=== PATIENT | female | born 1985 | race Asian ===

== ENCOUNTER 2018-07-14 23:40 | Outpatient (CLI) | payer MEDICAID ==
[~2018-07-14] VITALS: Ht 157.5 cm; Wt 81.3 kg
[2018-07-14 23:53] VITALS: BP 111/67; PULSE 83; RESP 19; Ht 157.5 cm; Wt 81.3 kg
[2018-07-14] MEDS ORDERED: PREN1TAB13 PO (23:56)
--- NOTE | 2018-07-15 03:50 | TRIAGE ---
OB Triage Datetime Report Generated by CPN: 07/15/2018 03:50 Datetime: 07/15/2018 03:25 Labor Evaluation Frequency: X3 Monitor Mode: External Duration (sec)2399: 60-70 Quality: Mild Pattern: Normal: <= 5 Contractions in 10 Minutes Resting Tone [place]: Relaxed Heart Rate FHR Baseline Rate: 135 Monitor Mode: External US Variability: Moderate 6-25 bpm Accelerations: 15X15 Decelerations: None Category: Category I Datetime: 07/15/2018 02:45 Stage of : OB Triage Labor Evaluation Frequency: 2-19 Monitor Mode: External Duration (sec)2399: 70-90 Quality: Mild Pattern: Normal: <= 5 Contractions in 10 Minutes Resting Tone [place]: Relaxed Heart Rate FHR Baseline Rate: 135 Monitor Mode: External US Variability: Moderate 6-25 bpm Accelerations: 15X15 Decelerations: None Category: Category I Datetime: 07/15/2018 02:10 Vaginal Exam Dilatation (cms): 1.0 Effacement (%): 30 Station: -3 Exam By: Suzy OSCAR Vaginal Bleeding: None Cervix, Consistency: Firm Cervix, Position: Posterior Datetime: 07/15/2018 01:32 Comments: MONITOR OFF, PT AMBULATING AROUND HALLWAY Datetime: 07/15/2018 00:55 Labor Evaluation Frequency: 3-6 Monitor Mode: External Duration (sec)2399: 50-110 Quality: Mild Pattern: Normal: <= 5 Contractions in 10 Minutes Resting Tone [place]: Relaxed Heart Rate FHR Baseline Rate: 145 Monitor Mode: External US Variability: Moderate 6-25 bpm Accelerations: 15X15 Decelerations: None Category: Category I Pain Assessment Pain Scale: 6 Pain Presence: Intermittent Pain Type: Contraction Pain Location: Abdomen Pain Relief Measures: Comfort Measures Datetime: 07/15/2018 00:09 Vaginal Exam Dilatation (cms): 1.0 Effacement (%): 30 Station: -3 Exam By: JANIE LAST Membrane Status: Intact Vaginal Bleeding: Normal Show Cervix, Consistency: Moderate Cervix, Position: Midposition Presentation 'A': Cephalic Datetime: 07/14/2018 23:59 Time of Arrival: 07/14/2018 23:41 EGA: 37.2 Arrived By: Wheelchair Arrived From: Home Chief Complaint: UC'S ([id number]) since around 2154 with some blood tinged mucus vaginal discharge Movement: Present Contractions: Regular Time Contractions Began: 07/15/2018 21:55 Contractions: q10-15 Rupture of Membranes: Denies Vaginal Bleeding: Normal Show Vaginal Discharge: Present Recent Sexual Intercouse: Denies Abdominal Trauma: Not Applicable Patient Complaints: Contractions Time Provider Notified: 07/15/2018 00:42 Initial Plan: VS, EFM, SVE, call OB Datetime: 07/14/2018 23:53 Assessment Type: Triage Maternal Assessment Level of Consciousness: Fully Conscious DTR's/Clonus: DTRs 2+; No Clonus Headache: Denies Blurred Vision: No Respiratory Effort: Unlabored; Regular Rhythm; Equal Expansion Breath Sounds, Left: Clear and Equal Breath Sounds, Right: Clear and Equal Nausea/Vomiting: Denies RUQ Epigastric Pain: Denies Lower Extremities Edema: None Degree: None Upper Extremities Edema: None Degree: None Facial Edema: None Temperature Route: Oral Fall Risk Assessment History of Falling: (0) No Secondary Diagnosis: (0) No Ambulatory Aid: (0) Bedrest/Nurse Assist IV Therapy: (0) No Gait: (0) Normal/Bedrest/Immobile Mental Status: (0) Oriented to Own Ability Fall Score: 0 Fall Risk Score Definition: No Risk: No action required Pain Assessment Pain Scale: 5 Pain Presence: Intermittent Pain Type: Contraction Pain Location: Abdomen Pain Relief Measures: Comfort Measures Datetime: 07/14/2018 23:52 Monitor Mode: External Monitor Mode: External US Comments: MONITOR PARTS APPLIED, FHT AUDIBLE AROUND 150-155BPM Datetime: 07/14/2018 23:49 Stage of : OB Triage Comments: MONITOR ON, PT IN LR5
--- NOTE | 2018-07-15 09:44 | PN ---
Triage Information Date/Time Reason for visit: Uterine contractions Weeks of Gestation 37 1/7 wks /Para Diabetes: none Hypertention: none Objective Vital Signs Date Temp Pulse Resp B/P (MAP) Pulse Ox O2 O2 Flow FiO2 Time Delivery Rate 07/14/18 98.1 83 19 111/67 Room Air 23:53 (82) Heart Rate: 130's Contractions: >10 Minutes Apart Results/Medications Imaging Results FINDINGS: breathing movement = 2/2 tone = 2/2 motion = 2/2 PADMAJA = 15.8 cm Single living intrauterine gestation with heart rate of 144 beats per minute. Anterior grade II placenta without placenta previa or abruption. Cephalic presentation. IMPRESSION: 1. Single living intrauterine gestation with cephalic presentation. 2. Biophysical profile = 8. 3. PADMAJA = 15.8 cm. RPTAT:HAJM Physician Eusebio Date Time Electronically viewed and signed by Chayo Guillen Physician on 07/15/2018 01:30 Disposition: Discharge Assessment/Plan 32 years old 3 para 10 1 1 with single intrauterine at 37 weeks and 1 day with EFRAIN of 08/02/2018 complaining of uterine contractions. She states good movement. She denies nausea, vomiting, shortness of breath, chest pain, headache, visual changes, vaginal bleeding or LOF. -FHR: No sign of metabolic acidosis- Category I -Contractions: Occasional -SVE: 04/22/-3/ceph/intact, no cervical changes in 2 hours interval -Ultrasound performed: Normal PADMAJA, BPP 8 out of 8 -Symptoms and sign of labor, preeclampsia, kick count discussed with patient, she voiced understanding. All of her questions answered. -Patient was discharged home in stable condition with the appropriate discharge instructions provided. I would like patient to have close follow-up with her primary physician or outpatient clinic in 1-2 days or return to triage for worsening symptoms or any other urgent concerns. AMITA HARMON Jul 15, 2018 09:43
== END 2018-07-15 03:40 | disposition home or self-care (01) ==
LOC: OBT 23:40 → L-D 23:40 → OBT 07-15 03:40
PROVIDERS: ATTEND Obstetrics & Gynecology
DX: O62.9 Abnormality of forces of labor, unspecified (principal); Z3A.37 37 weeks gestation of pregnancy
CPT/HCPCS: 76818; G0463

== ENCOUNTER 2018-07-15 13:17 | Inpatient (IN) | payer MEDICAID ==
[~2018-07-15] VITALS: Ht 157.5 cm; Wt 80.3 kg
[~2018-07-15 13:17] MED LIST: PREN1TAB13 PO
[2018-07-15 13:26] VITALS: Ht 157.5 cm; Wt 80.3 kg
[2018-07-15 13:27] VITALS: BP 107/62
--- NOTE | 2018-07-15 14:56 | HP ---
Date/Time of Note Date/Time of Note DATE: 07/15/18 TIME: 14:54 OB - History Hx of Present Chief Complaint: contractions Estimated Due Date: August 02, 2018 : 3 Para: 1 Spontaneous : 1 Therapeutic : 0 Care: Good Care Ultrasounds: Normal mid trimester US Obstetrical Complications: None Medical Complications: None Past Family/Social History * Past Medical, Surgical, Family and Obstetric Histories reviewed from chart. GBS Status: Negative OB Admission Exam Vital Signs Vital Signs Vital Signs Date Temp Pulse Resp B/P (MAP) Pulse Ox O2 O2 Flow FiO2 Time Delivery Rate 07/15/18 97.7 107/62 13:27 (77) Physical Exam HEENT: WNL Heart: Rhythm Normal Lungs: Clear, Equal Abdomen: WNL Extremities: Normal Reflexes: Normal Cervical Dilatation: 4cm Effacement: 75% Station: -1 Membranes: Intact Heart Rate: 120's Accelerations: Accelerations Present Decelerations: No Decelerations Varibility: Moderate OB Assessment/Plan Reason for admission: active labor Plan: Expectant Management NIKKY MONTENEGRO MD Jul 15, 2018 14:55
--- NOTE | 2018-07-15 15:05 | TRIAGE ---
OB Triage Datetime Report Generated by CPN: 07/15/2018 15:05 Datetime: 07/15/2018 15:03 Comments: REPORT GIVEN TO RAVI RN Datetime: 07/15/2018 14:48 Dilatation (cms): 4.0 Effacement (%): 80 Station: -1 Exam By: DR. MONTENEGRO Datetime: 07/15/2018 13:31 Stage of : OB Triage Assessment Type: Triage Level of Consciousness: Fully Conscious DTR's/Clonus: DTRs 2+; No Clonus Headache: Denies Blurred Vision: No Respiratory Effort: Unlabored; Regular Rhythm; Equal Expansion Breath Sounds, Left: Clear and Equal Breath Sounds, Right: Clear and Equal Nausea/Vomiting: Denies RUQ Epigastric Pain: Denies Lower Extremities Edema: None Degree: None Upper Extremities Edema: None Degree: None Facial Edema: None History of Falling: (0) No Secondary Diagnosis: (0) No Ambulatory Aid: (0) Bedrest/Nurse Assist IV Therapy: (0) No Gait: (0) Normal/Bedrest/Immobile Mental Status: (0) Oriented to Own Ability Fall Score: 0 Fall Risk Score Definition: No Risk: No action required Monitor Mode: External Monitor Mode: External US Pain Scale: 5 Pain Presence: Intermittent Pain Type: Contraction Pain Location: Abdomen Pain Goal: 0 Datetime: 07/15/2018 13:30 Time of Arrival: 07/15/2018 13:10 EGA: 37.3 Arrived By: Ambulatory Arrived From: Office Chief Complaint: sent to r/o labor Movement: Present Contractions: Irregular Contractions: q `15 minutes Rupture of Membranes: Denies Vaginal Bleeding: None Vaginal Discharge: Denies Recent Sexual Intercouse: Denies Abdominal Trauma: Not Applicable Patient Complaints: Contractions Time Provider Notified: 07/15/2018 13:31 Provider Notified: Mary Anne Initial Plan: efm evaluate for labor Datetime: 07/14/2018 23:59 Provider Notified: DR. HARMON
[2018-07-15] MEDS ORDERED: METHYLERGONOVINE 0.2 MG INJ IM PRN (15:30)
[2018-07-15] MEDS ORDERED: LIDOCAINE 1% (MPF) 30 ML INJ INJ PRN (15:30)
[2018-07-15] MEDS ORDERED: MISOPROSTOL 200 MCG TAB PR PRN (15:30)
[2018-07-15] MEDS ORDERED: IBUPROFEN 600 MG TAB PO PRN (15:30)
[2018-07-15] MEDS ORDERED: OXYTOCIN 30 UNITS/LR 500 ML IV SCH ×2 (15:30)
[2018-07-15] MEDS ORDERED: CARBOPROST 250 MCG INJ IM PRN (15:30)
[2018-07-15] MEDS ORDERED: OXYTOCIN 30 UNITS/LR 500 ML IV PRN (15:30)
[2018-07-15] MEDS ORDERED: BUTORPHANOL 2 MG INJ IV PRN ×2 (15:30)
[2018-07-15] MEDS: LACTATED RINGER'S 1,000 ML IV SCH ×2 (16:15→18:50)
--- NOTE | 2018-07-15 16:19 | PREAC ---
Date/Time of Note Date/Time of Note DATE: 07/15/18 TIME: 16:18 Anesthesia Eval and Record Evaluation Time Pre-Procedure Interview DATE: 07/15/18 TIME: 16:18 Age 32 Sex female NPO: 8 hrs Preoperative diagnosis labor pain Planned procedure epidural Past Medical History Past Medical History: None Surgery & Anesthesia Issues No known issue Meds Anticoagulation: No Beta Odalis within 24 hr: No Reason Beta Odalis not given: Pt. not on B-Odalis Reported Medications Pnv95/Ferrous Fumarate/FA ( Vitamins Tablet) 1 Each Tablet, 1 EACH PO, TAB 07/14/18 Current Medications Lactated Ringer's 1,000 ml @ 125 mls/hr Q8H IV Last administered on 07/15/18at 16:15; Admin Dose 125 MLS/HR; Start 07/15/18 at 15:23 Butorphanol Tartrate (Stadol) 1 mg Q2H PRN IV PAIN; Start 07/15/18 at 15:30 Butorphanol Tartrate (Stadol) 2 mg Q2H PRN IV .PAIN; Start 07/15/18 at 15:30 Lidocaine (Xylocaine 1% (Mpf)) 30 ml ONCE PRN INJ .EPISIOTOMY; Start 07/15/18 at 15:30 Oxytocin/Lactated Ringer's 500 ml @ 500 mls/hr ONCE POST IV ; Start 07/15/18 at 15:30 Oxytocin/Lactated Ringer's 500 ml @ 125 mls/hr POST IV ; Start 07/15/18 at 15:30 Ibuprofen (Motrin) 600 mg ONCE PRN PO .PAIN 1-5; Start 07/15/18 at 15:30 Oxytocin/Lactated Ringer's 500 ml @ 0 mls/hr ONCE PRN IV .VAGINAL BLEEDING; Start 07/15/18 at 15:30 Methylergonovine Maleate (Methergine) 0.2 mg ONCE PRN IM .VAGINAL BLEEDING; Start 07/15/18 at 15:30 Carboprost Tromethamine (Hemabate) 250 mcg ONCE PRN IM .VAGINAL BLEEDING; Start 07/15/18 at 15:30 Misoprostol (Cytotec) 1,000 mcg ONCE PRN WI .VAGINAL BLEEDING; Start 07/15/18 at 15:30 Meds reviewed: Yes Allergies Coded Allergies: No Known Allergy (Unverified , 07/14/18) Allergies Reviewed: Yes Labs/Studies Labs Reviewed: Reviewed by anesthesiologist Result Diagram: 07/15/18 1554 Laboratory Tests 07/15/18 15:54 test: Positive Studies: ECG (n/a), CXR (n/a) Pre-procedure Exam Last vitals Vital Signs Date Temp Pulse Resp B/P (MAP) Pulse Ox O2 O2 Flow FiO2 Time Delivery Rate 07/15/18 97.7 107/62 13:27 (77) Airway: Adequate mouth opening Mallampati: Mallampati I Teeth: Normal Lung: Normal Heart: Normal ASA Physical Status ASA physical status: 2 Emergency: None Planned Anesthetic Neuraxial: Epidural Pre-operative Attestations Prior to commencing anesthesia and surgery, the patient was re-evaluated, there was verification of: *The patient's identity *The results of appropriate recent lab work and preoperative vital signs *The above evaluation not changing prior to induction *Anesthetic plan, risk benefits, alternative and complications discussed with patient/family; questions answered; patient/family understands, accepts and wishes to proceed. MARCELLE PALOMO MD Jul 15, 2018 16:19
[2018-07-15] MEDS ORDERED: FENTAnyl 2MCG/ML-ROPIV 0.2% 100 ML ONE (17:17)
[2018-07-15] MEDS ORDERED: NALOXONE (0.4 MG/ML) INJ IV PRN (18:30)
[2018-07-15] MEDS ORDERED: FENTAnyl 2MCG/ML-ROPIV 0.2% 100 ML BAG EPI SCH (18:30)
[2018-07-16] MEDS: LACTATED RINGER'S 1,000 ML IV SCH (01:27)
--- NOTE | 2018-07-16 03:58 | PAC ---
Date/Time of Note Date/Time of Note DATE: 07/16/18 TIME: 03:58 Post-Anesthesia Notes Post-Anesthesia Note Last documented vital signs Vital Signs Date Temp Pulse Resp B/P (MAP) Pulse Ox O2 O2 Flow FiO2 Time Delivery Rate 07/15/18 97.7 87 19 107/62 98 17:27 (77) Activity: WNL Respiratory function: WNL Cardiovascular function: WNL Mental status: Baseline Pain reasonably controlled: Yes Hydration appropriate: Yes Nausea/Vomiting absent: No MARCELLE PALOMO MD Jul 16, 2018 03:58
[2018-07-16 07:50] VITALS: BP 101/65; PULSE 91; RESP 20
[2018-07-16] MEDS ORDERED: OXYTOCIN 30 UNITS/LR 500 ML IV SCH (08:20)
[2018-07-16] MEDS ORDERED: MISOPROSTOL 200 MCG TAB PR PRN (08:30)
[2018-07-16] MEDS ORDERED: CARBOPROST 250 MCG INJ IM PRN (08:30)
[2018-07-16] MEDS ORDERED: OXYCODONE/ASPIRIN (4.88/325) TAB PO PRN ×2 (08:30)
[2018-07-16] MEDS ORDERED: OXYTOCIN 30 UNITS/LR 500 ML IV PRN (08:30)
[2018-07-16] MEDS ORDERED: LANOLIN HPA 1 PKT TOP PRN (08:30)
[2018-07-16] MEDS ORDERED: NACL 0.9% 3 ML SYG IV SCH (08:30)
[2018-07-16] MEDS: BENZOCAINE 20% 56 ML SPRAY TOP PRN (09:01)
[2018-07-16] MEDS: WITCH HAZEL/GLYCERIN PAD PR PRN ×2 (09:01→22:14)
[2018-07-16] MEDS: IBUPROFEN 600 MG TAB PO SCH ×2 (12:38→18:05)
[2018-07-16 13:15] VITALS: BP 97/50; PULSE 83; RESP 20
--- NOTE | 2018-07-16 14:59 | LDN ---
Date/Time of Note Date/Time of Note DATE: 07/16/18 TIME: 14:46 Delivery Summary 07/16/2018 Placenta Delivered: Spontaneously Meconium: none Episiotomy: Yes Laceration repair: second degree perineal laceration repaired after local infiltration of lidocain with 3-0 chromic Anesthesia type: Epidural Estimated blood loss: 300 Sponge & Needle done & correct: Yes All needle counts correct: Yes Any foreign bodies felt in the: No Infant Delivery Information Sex Sex: male Apgars 1 Minute: 8 5 Minute: 9 Suctioning Nose & mouth suctioned at yoel: Yes Delee suction performed: Yes Umbilical Cord Umbilical cord with: 3 Vessels Cord presentations: no nuchal cord Cord Blood was obtained: Yes LUIS HOYT MD Jul 16, 2018 14:56
[2018-07-16 16:00] VITALS: BP 98/60; PULSE 77; RESP 18
[2018-07-16 20:00] VITALS: BP 101/59; PULSE 75; RESP 18
[2018-07-17] MEDS: IBUPROFEN 600 MG TAB PO SCH ×5 (00:48→23:25)
[2018-07-17 04:00] VITALS: BP 96/60; PULSE 66; RESP 20
[2018-07-17 08:00] VITALS: BP 95/58; PULSE 74; RESP 18
--- NOTE | 2018-07-17 12:47 | DS ---
Date/Time of Note Date/Time of Note DATE: 07/17/18 TIME: 12:47 Obstetrical Discharge Record Final Diagnosis Final Diagnosis: Term delivered Vaginal Delivery Obstetrical Delivery: Spontaneous Condition on Discharge Physical Assessment Voiding: Yes Bowel Movement: Yes Breast: Soft, non-tender, Filling Fundus: Firm Calf Tenderness: No Patient Condition: Stable NIKKY MONTENEGRO MD Jul 17, 2018 12:47
[2018-07-17 20:00] VITALS: BP 106/53; PULSE 80; RESP 18
[2018-07-18 04:20] VITALS: BP 87/50; PULSE 69; RESP 19
[2018-07-18] MEDS: IBUPROFEN 600 MG TAB PO SCH ×2 (05:51→12:21)
[2018-07-18 08:30] VITALS: BP 101/65; PULSE 72; RESP 18
[2018-07-18] MEDS ORDERED: DIPHTH/TET/ACEL PERTUSS (ADULT) 0.5 ML VIAL IM* ONE (11:30)
[2018-07-18] MEDS: BENZOCAINE 20% 56 ML SPRAY TOP PRN (12:21)
--- NOTE | 2018-07-19 15:20 | DELSUM ---
Delivery Summary A-C Datetime Report Generated by CPN: 07/19/2018 15:20 DELIVERY PERSONNEL Correctional Case Manager: Nevarez, [place] MATERNAL INFORMATION Delivery Anesthesia: Epidural Medications in Delivery: 30 UNITS PITOCIN Delivery QBL (ml): 300 Placenta Cultured: No Maternal Complications: None LABOR SUMMARY EDC: 08/02/2018 00:00 No. Babies in Womb: 1 Attempted: No Labor Anesthesia: Epidural LABOR INFORMATION Reason for Induction: Not Applicable Onset of Labor: 07/15/2018 15:11 Complete Dilatation: 07/16/2018 02:20 Oxytocin: N/A Group B Beta Strep: Negative Steroids Given: None Reason Steroids Not Administered: Not Applicable MEMBRANES Membranes Rupture Method: Spontaneous Rupture of Membranes: 07/16/2018 02:20 Length of Rupture (hr): 3.03 Amniotic Fluid Color: Clear Amniotic Fluid Amount: Copious Amniotic Fluid Odor: None STAGES OF LABOR Stage 1 hr: 11 Stage 1 min: 9 Stage 2 hr: 3 Stage 2 min: 2 Stage 3 hr: 0 Stage 3 min: 2 Total Time in Labor hr: 14 Total Time in Labor min: 13 VAGINAL DELIVERY Laceration Extension: Second Degree Laceration Type: Perineal Laceration Repair: Yes Initial Vag Sponge Count: 10 Final Vag Sponge Count: 10 Initial Vag Sharps Count: 1+1 Final Vag Sharps Count: 2 Sponge Count Correct: Yes; Vaginal Sweep Performed Sharps Count Correct: Yes BABY A INFORMATION Delivery Date/Time: 07/16/2018 05:22 Method of Delivery: Vaginal Born in Route : No : N/A Forceps: N/A Vacuum Extraction: N/A Shoulder Dystocia : No SHOULDER DYSTOCIA BABY A Delivery Date/Time: 07/16/2018 05:22 PRESENTATION/POSITION BABY A Presentation: Cephalic Cephalic Presentation: Vertex Breech Presentation: N/A PLACENTA INFORMATION BABY A Placenta Delivery Time : 07/16/2018 05:24 Placenta Method of Delivery: Expressed Placenta Status: Delivered SCORES BABY A Heart Rate 1 min: >100 bpm Resp Effort 1 min: Good Cry Reflex Irritability 1 min: Cough/Sneeze/Pulls Away Muscle Tone 1 min: Active Motion Color 1 min: Blue/Pale Resuscitation Effort 1 min: Tactile Stimulation SCORE 1 MIN: 8 Heart Rate 5 min: >100 bpm Resp Effort 5 min: Good Cry Reflex Irritability 5 min: Cough/Sneeze/Pulls Away Muscle Tone 5 min: Active Motion Color 5 min: Body [place], Extremit Blue Resuscitation Effort 5 min: Tactile Stimulation SCORE 5 MIN: 9 INFANT INFORMATION BABY A Gestational Age at Delivery: 37.4 Gestational Status: Early Term- 37- 38.6 Weeks Outcome : Liveborn Condition : Stable Infant Sex: Male IDENTIFICATION/MEDS BABY A ID Band Number: [id number] ID Band Location: Right Leg; Left Arm Sensor Applied: Yes Sensor Number: [id number] Sensor Location : Cord Clamp Vitamin K Given : Not Given Erythromycin Given: Not Given WEIGHT/LENGTH BABY A Infant Birthweight (gm): 3610 Infant Weight (lb): 7 Weight (oz): 15 Length (in): 19.75 Infant Length (cm): 50.17 CORD INFORMATION BABY A No. Cord Vessels: 3 Nuchal Cord : N/A Cord Blood Taken: Yes Infant Suction: Mouth; Nose ASSESSMENT BABY A Infant Complications: None Physical Findings at Delivery: Within Normal Limits Infant Respirations: Appears Normal Spinner Cap Frame/ALS Called : No Care By: BENJAMIN Transferred To: Remains with Mother
== END 2018-07-18 15:20 | disposition home or self-care (01) | DRG 807 ==
LOC: OBT 13:17 → L-D 13:17 → OBT 14:51 → L-D 15:13 → PP1 07-16 14:25
PROVIDERS: ADMIT Obstetrics & Gynecology; ATTEND Obstetrics & Gynecology
PROC: 10E0XZZ Delivery of Products of Conception, External Approach (ICD-10-PCS; principal; 2018-07-16)
PROC: 0W8NXZZ Division of Female Perineum, External Approach (ICD-10-PCS; 2018-07-16)
PROC: 0KQM0ZZ Repair Perineum Muscle, Open Approach (ICD-10-PCS; 2018-07-16)
DX: O70.1 Second degree perineal laceration during delivery (principal); Z37.0 Single live birth; Z3A.37 37 weeks gestation of pregnancy; Z23 Encounter for immunization
CPT/HCPCS: 62322; 85025; 85610; 85730; 86592; 86850; 86900; 86901; 87340; 90715; G0463; J0595; J2590; J3010; J7120